=== PATIENT | male | born 1940 | race Two or more races ===

== ENCOUNTER → 2016-10-20 | Outpatient (CLI) | payer OTHER | LOC: RAD 08:00 | PROVIDERS: ATTEND Family Medicine | DX: G93.89 Other specified disorders of brain (principal) | CPT/HCPCS: 70553; A9577 ==

== ENCOUNTER 2016-12-25 21:27 | Emergency (ER) | payer MEDICAID, OTHER ==
[2016-12-25] MEDS ORDERED: DIPHENHYDRAMINE HCL 50 MG/ML VIAL IV ONE (23:16)
[2016-12-25] MEDS ORDERED: METOCLOPRAMIDE HCL INJ/PF 10 MG/2 ML SDV IV ONE (23:16)
[2016-12-25] MEDS ORDERED: NORMAL SALINE 1000 ML 1,000 ML IV ONE (23:16)
--- NOTE | 2016-12-25 23:40 | RADIOLOGY REPORT (SQ) ---
EXAM DESCRIPTION: CT HEAD WITHOUT COMPLETED DATE/TIME: 12/25/2016 11:23 pm REASON FOR STUDY: headache, prior tumor COMPARISON: MRI of the brain dated September 2016 TECHNIQUE: Axial images acquired through the brain without intravenous contrast. Images reviewed wi th bone, brain and subdural windows. Images stored on PACS. All CT scanners at this facility use dose modulation, iterative reconstruction, and/or weight based d osing when appropriate to reduce radiation dose to as low as reasonably achievable (ALARA). [facility]: Dose Right [facility]: CareDose [facility]: Dose Right [facility]: Teradose 4D [facility]: [employer] RADIATION DOSE: 64.61 mGy. LIMITATIONS: None. FINDINGS: VENTRICLES: Normal size and contour. CEREBRUM: No masses. No hemorrhage. No midline shift. Normal toney/white matter differentiation. N o evidence for acute infarction. CEREBELLUM: The previously described mass lesion in the left cerebellar hemisphere is not as well vis ualized on the non contrasted brain CT scan. There is associated white matter edema. Mass effect is seen with some compression of the 4th ventricle. EXTRAAXIAL SPACES: No fluid collections. No masses. ORBITS AND GLOBE: No intra- or extraconal masses. Normal contour of globe without masses. CALVARIUM: No fracture. PARANASAL SINUSES: No fluid or mucosal thickening. SOFT TISSUES: No mass or hematoma. OTHER: No other significant finding. IMPRESSION: The previously described mass lesion in the left cerebellar hemisphere is not as well vi sualized on the non contrasted brain CT scan. There is associated white matter edema. Mass effect i s seen with some compression of the 4th ventricle. Other findings as noted above. TECHNICAL DOCUMENTATION: JOB ID: [id number] Quality ID # [id number]: Final reports with documentation of one or more dose reduction techniques (e.g., Au tomated exposure control, adjustment of the mA and/or kV according to patient size, use of iterative reconstruction technique) 2010 [employer]- All Rights Reserved
--- NOTE | 2016-12-26 00:44 | ER Document Report ---
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 He says that IM Dec[facility] that he has from [facility] usually helps his headache, but it is not helping today. He has an appointment with neurosurgery this week to discuss gamma knife surgery. Denies blurry vision, ataxia, fevers, neck stiffness, focal weakness, numbness, tingling, chest pain or shortness of breath. TRAVEL OUTSIDE OF THE [place] IN LAST 30 DAYS: Yes - Related Data Allergies/Adverse Reactions: No Known Allergies Allergy (Verified 05/10/16 12:04) Past Medical History - General Information source: Patient - Social History Smoking Status: Never Smoker Chew tobacco use (# tins/day): No Frequency of alcohol use: None Drug Abuse: None Family History: Reviewed & Not Pertinent Patient has suicidal ideation: No Patient has homicidal ideation: No - Past Medical History Cardiac Medical History: Reports: Hx Hypercholesterolemia, Hx Hypertension Renal/ Medical History: Denies: Hx Peritoneal Dialysis Past Surgical History: Reports: Hx Appendectomy - Immunizations Hx Diphtheria, Pertussis, Tetanus Vaccination: Yes Review of Systems - Review of Systems Notes: REVIEW OF SYSTEMS: CONSTITUTIONAL: -fevers, -chills EENT: -eye pain, -difficulty swallowing, -nasal congestion CARDIOVASCULAR:-chest pain, -syncope. RESPIRATORY: -cough, -SOB GASTROINTESTINAL: -abdominal pain, - nausea, -vomiting, -diarrhea GENITOURINARY: -dysuria, -hematuria MUSCULOSKELETAL: -back pain, -neck pain SKIN: -rash or skin lesions. HEMATOLOGIC: -easy bruising or bleeding. LYMPHATIC: -swollen, enlarged glands. NEUROLOGICAL: -altered mental status or loss of consciousness, +headache, - neurologic symptoms PSYCHIATRIC: -anxiety, -depression. ALL OTHER SYSTEMS REVIEWED AND NEGATIVE. Physical Exam - Vital signs Vitals: Temp Pulse Resp BP Pulse Ox 98.2 F 71 18 179/69 H 95 12/25/16 21:30 12/25/16 21:30 12/25/16 21:30 12/25/16 21:30 12/25/16 21:30 - Notes Notes: PHYSICAL EXAMINATION: GENERAL: Well-appearing, well-nourished and in no acute distress. HEAD: Atraumatic, normocephalic. EYES: Pupils equal round and reactive to light, extraocular movements intact, sclera anicteric, conjunctiva are normal. ENT: nares patent, oropharynx clear without exudates. Moist mucous membranes. NECK: Normal range of motion, supple without lymphadenopathy LUNGS: Breath sounds clear to auscultation bilaterally and equal. No wheezes rales or rhonchi. HEART: Regular rate and rhythm without murmurs ABDOMEN: Soft, nontender, normoactive bowel sounds. No guarding, no rebound. No masses appreciated. EXTREMITIES: Normal range of motion, no pitting or edema. No cyanosis. NEUROLOGICAL: Cranial nerves grossly intact. Normal speech, normal gait. Normal sensory and motor exams. PSYCH: Normal mood, normal affect. SKIN: Warm, Dry, normal turgor, no rashes or lesions noted. Course - Re-evaluation Re-evalutation: 12/26/16 00:43 Spoke to patient about CT Head findings. He says that he is in the ER for pain control only and he has his neurosurgery appointment tomorrow. Has no ataxia or focal neuro symptoms at this time. After headache cocktail, patient feels much better and is requesting discharge home. Provided him with a copy of his CT head to take to the neurosurgeon. Given strict return precautions and he understands - Vital Signs Vital signs: Temp Pulse Resp BP Pulse Ox 98.4 F 66 17 138/72 H 95 12/25/16 23:31 12/25/16 23:31 12/25/16 23:31 12/25/16 23:31 12/25/16 23:31 - Diagnostic Test Radiology reviewed: Image reviewed, Reports reviewed Radiology results interpreted by me: CT Head: The previously described mass lesion in the left cerebellar hemisphere is not as well visualized on the non contrasted brain CT scan. There is associated white matter edema. Mass effect is seen with some compression of the 4th ventricle. Other findings as noted above. Discharge - Discharge Clinical Impression: Brain mass Chronic headache Qualifiers: Headache type: unspecified Intractability: not intractable Qualified Code(s): R51 - Headache Condition: Stable Disposition: HOME, SELF-CARE Additional Instructions: You must follow-up with the neurosurgeon as scheduled. Take Tylenol 650 mg every 4 hours as needed to help with your headache. HEADACHE: If you develop a fever, if the headache is different from any you've previously experienced, or if the headache progressively worsens, then call your physician at once or go to the emergency room. REGLAN (METOCLOPRAMIDE): Reglan has been prescribed. This medicine affects the stomach and intestines. It can be used to treat nausea and vomiting, to prevent reflux of stomach acid up into the esophagus, or to increase the contractions of the stomach and intestines. It is often prescribed for esophagitis, and for paralysis of the stomach in diabetics. Reglan can cause either mild restlessness or drowsiness. You should contact the doctor at once if you become extremely restless, anxious, or cannot sleep, or if you develop uncontrollable motions of the lips, tongue, or jaw. Do not take alcohol with this medicine. Do not drive or operate machinery until you have been taking this medicine long enough to know how it affects you. Call the doctor if you develop abdominal pains, lightheadedness, black stool, or blood in the stool or vomitus. USE OF DIPHENHYDRAMINE: Diphenhydramine (Benadryl) is an antihistamine and has been recommended to help treat your headache and to prevent side effects of other medications used to treat headaches. The medication can be repeated four times daily. Age Elixir (12.5 mg/tsp) 25 mg pill adult 1-2 tabs Antihistamines may cause drowsiness, especially with the first dose. Do not operate machinery or drive while under the effects of the medication. Do not combine the medication with alcohol, or with any other medication without talking to your doctor. FOLLOW-UP CARE: If you have been referred to a physician for follow-up care, call the physician s office for an appointment as you were instructed or within the next two days. If you experience worsening or a significant change in your symptoms, notify the physician immediately or return to the Emergency Department at any time for re-evaluation.
[2016-12-26 01:39] VITALS: BP 146/66
== END 2016-12-26 01:39 | disposition home or self-care (01) ==
LOC: ER 21:27
DX: R51 Headache (principal); G93.89 Other specified disorders of brain; R11.0 Nausea; E78.00 Pure hypercholesterolemia, unspecified; I10 Essential (primary) hypertension
CPT/HCPCS: 99284; 96374; 96375; 70450; J1200; J2765; J7030

== ENCOUNTER 2016-12-28 17:26 | Emergency (ER) | payer MEDICAID, OTHER ==
[2016-12-28 17:35] VITALS: BP 173/74
--- NOTE | 2016-12-28 17:53 | ER Document Report ---
ED Headache - General Chief Complaint: Headache Stated Complaint: HEADACHE Time Seen by Provider: 12/28/16 17:38 TRAVEL OUTSIDE OF THE [place]. IN LAST 30 DAYS: No - HPI Patient complains to provider of: Headache - This pt. has as known cerebellar tumor and was seen here 3 days ago for RAZO and CT was done at that time. He was supposed to have surgery several months ago but it was postponed due to an insurance issue. He states he was told to take tylenol for his RAZO but that is not contolling his pain. - Related Data Allergies/Adverse Reactions: No Known Allergies Allergy (Verified 12/28/16 17:34) Past Medical History - Social History Smoking Status: Never Smoker Cigarette use (# per day): No Chew tobacco use (# tins/day): No Smoking Education Provided: No Frequency of alcohol use: None Drug Abuse: None Family History: Reviewed & Not Pertinent Patient has suicidal ideation: No Patient has homicidal ideation: No - Past Medical History Cardiac Medical History: Reports: Hx Hypercholesterolemia, Hx Hypertension Renal/ Medical History: Denies: Hx Peritoneal Dialysis Past Surgical History: Reports: Hx Appendectomy - Immunizations Hx Diphtheria, Pertussis, Tetanus Vaccination: Yes Review of Systems - Review of Systems Constitutional: No symptoms reported EENT: No symptoms reported Cardiovascular: No symptoms reported Respiratory: No symptoms reported Gastrointestinal: No symptoms reported Musculoskeletal: No symptoms reported Neurological/Psychological: See HPI, Headaches -: Yes All other systems reviewed and negative Physical Exam - Vital signs Vitals: Temp Pulse Resp BP Pulse Ox 98.0 F 63 16 173/74 H 96 12/28/16 17:33 12/28/16 17:33 12/28/16 17:33 12/28/16 17:33 12/28/16 17:33 - General General appearance: Appears well In distress: None - HEENT Pupils: PERRL Pharynx: Normal Neck: Normal - Respiratory Respiratory status: No respiratory distress Breath sounds: Normal - Cardiovascular Rhythm: Regular Heart sounds: Normal auscultation - Abdominal Inspection: Normal Tenderness: Nontender - Extremities General upper extremity: Normal inspection General lower extremity: Normal inspection - Neurological Neuro grossly intact: Yes Cognition: Normal Orientation: AAOx4 Speech: Normal Cranial nerves: Normal Cerebellar coordination: Normal Motor strength normal: LUE, RUE, LLE, RLE Additional motor exam normals: 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 to call his neurosurgeon tomorrow so that he can make preparation for surgery. He states he will do this - Vital Signs Vital signs: Temp Pulse Resp BP Pulse Ox 98.0 F 63 16 173/74 H 96 12/28/16 17:33 12/28/16 17:33 12/28/16 17:33 12/28/16 17:33 12/28/16 17:33 Discharge - Discharge Clinical Impression: Brain mass Cephalgia Qualifiers: Headache type: unspecified Headache chronicity pattern: acute headache Intractability: not intractable Qualified Code(s): R51 - Headache Condition: Stable Disposition: HOME, SELF-CARE Instructions: Headache ([facility]) Additional Instructions: rest, take meds as prescribed, return if worse Prescriptions: Methylprednisolone [Medrol Dosepack (4 mg/Tab) 21 Tab/Dosepak] 4 mg PO ASDIR PRN #21 tab.ds.pk PRN Reason: Oxycodone HCl/Acetaminophen [Percocet 5-325 mg Tablet] 1 tab PO ASDIR PRN #15 tab PRN Reason:
[2016-12-28] MEDS ORDERED: HYDROCODONE/ACETAMINOPHEN 10-325 MG TABLET PO ONE (18:00)
== END 2016-12-28 18:13 | disposition home or self-care (01) ==
LOC: ER 17:26
DX: G93.89 Other specified disorders of brain (principal); R51 Headache; E78.00 Pure hypercholesterolemia, unspecified; I10 Essential (primary) hypertension
CPT/HCPCS: 99283

== ENCOUNTER 2017-02-07 12:33 | Emergency (ER) | payer MEDICAID, OTHER ==
[2017-02-07] MEDS ORDERED: KETOROLAC TROMETHAMINE 60 MG/2 ML SDV IM ONE (13:04)
--- NOTE | 2017-02-07 13:08 | ER Document Report ---
ED Medical Screen (RME) - General Chief Complaint: Headache Stated Complaint: HEADACHE Time Seen by Provider: 02/07/17 13:03 Mode of Arrival: Ambulatory Information source: Patient TRAVEL OUTSIDE OF THE [place] IN LAST 30 DAYS: No [facility] - HPI Patient complains to provider of: RAZO Onset: Yesterday - pt has been receiving radiation for brain tumor but has been having recurring RAZO for the past 1-2 days. Had exacerbation this am. - Related Data Allergies/Adverse Reactions: No Known Allergies Allergy (Verified 02/07/17 12:41) Past Medical History - Social History Chew tobacco use (# tins/day): No Frequency of alcohol use: None Drug Abuse: None - Past Medical History Cardiac Medical History: Reports: Hx Hypercholesterolemia, Hx Hypertension Renal/ Medical History: Denies: Hx Peritoneal Dialysis Past Surgical History: Reports: Hx Appendectomy - Immunizations Hx Diphtheria, Pertussis, Tetanus Vaccination: Yes Physical Exam - Vital signs Vitals: Temp Pulse Resp BP Pulse Ox 98.5 F 69 20 175/66 H 96 02/07/17 12:41 02/07/17 12:41 02/07/17 12:41 02/07/17 12:41 02/07/17 12:41 Course - Vital Signs Vital signs: Temp Pulse Resp BP Pulse Ox 98.5 F 69 20 175/66 H 96 02/07/17 12:41 02/07/17 12:41 02/07/17 12:41 02/07/17 12:41 02/07/17 12:41
[2017-02-07 13:23] LABS: ABSOLUTE LYMPHOCYTES (AUTO) 1.5 10^3/uL (0.5-4.7); ABSOLUTE MONOCYTES (AUTO) 0.9 10^3/uL (0.1-1.4); ABSOLUTE NEUT (AUTO) 9.9 10^3/uL (1.7-8.2); BASOPHILS % (AUTO) 0.3 % (0-2); EOSINOPHILS % (AUTO) 0.2 % (0-6); HEMOGLOBIN 12.4 g/dL (13.5-17.0); HGB HCT DIFFERENCE -0.8; LYMPHOCYTES % (AUTO) 12.2 % (13-45); MEAN CORPUSCULAR HEMOGLOBIN 27.8 pg (27.0-33.4); MEAN CORPUSCULAR HGB CONC 32.7 g/dL (32.0-36.0); MEAN CORPUSCULAR VOLUME 85 fl (80-97); MONOCYTES % (AUTO) 7.5 % (3-13); RED BLOOD COUNT 4.47 10^6/uL (4.35-5.55); RED CELL DISTRIBUTION WIDTH 17.5 % (11.5-14.0); SEGMENTED NEUTROPHILS % (AUTO) 79.8 % (42-78); WHITE BLOOD COUNT 12.5 10^3/uL (4.0-10.5)
--- NOTE | 2017-02-07 13:24 | ER Document Report ---
ED General - General Mode of Arrival: Ambulatory Information source: Patient TRAVEL OUTSIDE OF THE [place] IN LAST 30 DAYS: No COUNTRY TRAVELED TO/FROM: [place] - HPI Onset: Other - Refer to HPI notes Similar symptoms previously: Yes Recently seen / treated by doctor: Yes <PARAG DIAZ - Last Filed: 02/07/17 13:35> <SHELBY JOINER - Last Filed: 02/07/17 15:30> - General Chief Complaint: Headache Stated Complaint: HEADACHE Time Seen by Provider: 02/07/17 13:03 Notes: Patient is a 76-year-old male presents emergency department with a headache. Patient headache since been present since yesterday and worsened this morning. Patient has been taking Tylenol with no relief. Patient's pain is located to the posterior region of his head the back of his neck. Patient also complains of some nausea and vomiting 2. Patient was found to have a cerebellar mass on 05/10/2016. Patient has been treated at [facility] for radiation; patient's last radiation was on 01/26/2017. Patient states there was initial thought that surgery could be performed however it does not seem that his providers at [facility] are going to utilize option. Patient has not had a biopsy. Patient's last CT scan showed a left cerebellar mass with metastatic lesions. Patient is currently taking steroids. Patient has had these headaches before which is how his mass was discovered however, today's headache is different because the pain is all the way across the back of his head and not just on the left side. Patient had a follow-up appointment with [facility] on 06/01/2017. (PARAG DIAZ) - Related Data Allergies/Adverse Reactions: No Known Allergies Allergy (Verified 02/07/17 12:41) Past Medical History - General Information source: Patient - Social History Smoking Status: Never Smoker Cigarette use (# per day): No Chew tobacco use (# tins/day): No Frequency of alcohol use: None Drug Abuse: None Family History: None Patient has suicidal ideation: No Patient has homicidal ideation: No - Past Medical History Cardiac Medical History: Reports: Hx Hypercholesterolemia, Hx Hypertension Malignancy Medical History: Reports Other - Cerebral mass with metastases; radiation but no surgery; possibly cancerous Past Surgical History: Reports: Hx Appendectomy - Immunizations Hx Diphtheria, Pertussis, Tetanus Vaccination: Yes <PARAG DIAZ - Last Filed: 02/07/17 13:35> Review of Systems - Review of Systems Constitutional: No symptoms reported EENT: No symptoms reported Cardiovascular: No symptoms reported Respiratory: No symptoms reported Gastrointestinal: No symptoms reported Genitourinary: No symptoms reported Male Genitourinary: No symptoms reported Musculoskeletal: No symptoms reported Skin: No symptoms reported Hematologic/Lymphatic: No symptoms reported Neurological/Psychological: See HPI, Headaches -: Yes All other systems reviewed and negative <PARAG DIAZ - Last Filed: 02/07/17 13:35> Physical Exam - Vital signs Interpretation: Hypertensive <PARAG DIAZ - Last Filed: 02/07/17 13:35> <SHELBY JOINER - Last Filed: 02/07/17 15:30> - Vital signs Vitals: Temp Pulse Resp BP Pulse Ox 98.5 F 69 20 175/66 H 96 02/07/17 12:41 02/07/17 12:41 02/07/17 12:41 02/07/17 12:41 02/07/17 12:41 - Notes Notes: GENERAL: Alert, interacts well. No acute distress. HEAD: Normocephalic, atraumatic. EYES: Appear normal. Pupils equal, round, and reactive to light. ENT: Moist mucus membranes, tongue midline. NECK: Full range of motion. Supple. Trachea midline. Tenderness to palpation over the posterior cervical musculature and at the nuchal ridge. LUNGS: Clear to auscultation bilaterally, no wheezes, rales, or rhonchi. No respiratory distress. HEART: Regular rate and rhythm. No murmurs, gallops, or rubs. ABDOMEN: Soft, non-tender. Non-distended. Normal bowel sounds. EXTREMITIES: Moves all 4 extremities spontaneously. Normal strength. No edema. NEUROLOGICAL: Alert and oriented x3. Normal speech. No focal neurological deficits. GSC 15. PSYCH: Normal affect, normal mood. SKIN: Warm, dry, normal turgor. No rashes or lesions noted. (MARY JANELYNDSEYPARAG) Course - Laboratory Result Diagrams: 02/07/17 13:10 02/07/17 13:10 <PARAG DIAZ - Last Filed: 02/07/17 13:35> - Laboratory Result Diagrams: 02/07/17 13:10 02/07/17 13:10 - Diagnostic Test Radiology reviewed: Image reviewed, Reports reviewed - CT scan shows the known left cerebellar mass with vasogenic edema and fourth ventricular compression. There also appears to be a new lesion developing in the right cerebellum. There is no supratentorial mass seen. <SHELBY JOINER - Last Filed: 02/07/17 15:30> - Re-evaluation Re-evalutation: 02/07/17 15:30 The patient reports his headache is feeling much better at this time. (SHELBY JOINER) - Vital Signs Vital signs: Temp Pulse Resp BP Pulse Ox 98.5 F 69 20 175/66 H 96 02/07/17 12:41 02/07/17 12:41 02/07/17 12:41 02/07/17 12:41 02/07/17 12:41 - Laboratory Laboratory results interpreted by me: 02/07/17 02/07/17 13:10 13:10 WBC 12.5 H Hgb 12.4 L RDW 17.5 H Seg Neutrophils % 79.8 H Lymphocytes % 12.2 L Absolute Neutrophils 9.9 H Glucose 121 H Discharge <PARAG DIAZ - Last Filed: 02/07/17 13:35> <SHELBY JOINER - Last Filed: 02/07/17 15:30> - Discharge Clinical Impression: Neoplasm of brain causing mass effect on adjacent structures Tension type headache Qualifiers: Headache chronicity pattern: acute headache Intractability: not intractable Qualified Code(s): G44.209 - Tension-type headache, unspecified, not intractable Condition: Stable Disposition: HOME, SELF-CARE Additional Instructions: Tension Headache: Your problem seems to be a muscle tension headache today. This very common type of headache occurs because of tightness in the muscles of the head and neck. The cause may be neck or jaw joint problems. The headache may last hours or days. The treatment of uncomplicated tension headaches is rest and pain medication. Often, the newer antiinflammatory pain medications are prescribed, as these also decrease the irritability of the painful tissues. Muscle relaxers , cold packs, or warm packs are sometimes helpful. Anti-anxiety medication or narcotics are sometimes needed temporarily, but are best avoided in the long run. If your headache becomes more severe, or if new symptoms develop (such as fever, stiff neck, vomiting, or decreasing alertness) you should be re-examined by the physician. //////////////////////////////////////////////////////////////////////////////// //////////////////////////////////////////////////////////////////////////////// /////////////////// Your exam today suggests the headache is due to a muscle tension headache. Take Tylenol for your headache and try moist heat and ice packs to the painful muscles in the back of your neck if needed. The CT scan shows the known mass in the left cerebellum, and there is a suggestion of a new mass arising in the right cerebellum. Call your neurosurgeon at [facility] Thursday morning to report the new CT scan findings and see if they would like to see you sooner than your May appointment. RETURN TO THE EMERGENCY ROOM IF ANY NEW OR WORSENING SYMPTOMS. Scribe Attestation: 02/07/17 15:30 I personally performed the services described in the documentation, reviewed and edited the documentation which was dictated to the scribe in my presence, and it accurately records my words and actions. (SHELBY JOINER) Scribe Documentation - Scribe Written by Robles:: Robles Pang, 02/07/2017 13:40 acting as scribe for :: Jules <PARAG DIAZ - Last Filed: 02/07/17 13:35>
[2017-02-07] MEDS ORDERED: PROCHLORPERAZINE EDISYLATE INJ 10 MG/2 ML VIAL IV ONE (13:35)
[2017-02-07] MEDS ORDERED: NORMAL SALINE 1000 ML 1,000 ML IV ONE (13:35)
[2017-02-07] MEDS ORDERED: DIPHENHYDRAMINE HCL 50 MG/ML VIAL IV ONE (13:36)
[2017-02-07 13:39] LABS: ALANINE AMINOTRANSFERASE 49 U/L (21-72); ALBUMIN 3.6 g/dL (3.5-5.0); ALKALINE PHOSPHATASE 126 U/L (38-126); ANION GAP 10 (5-19); ASPARTATE AMINO TRANSFERASE 28 U/L (17-59); BILIRUBIN,DIRECT 0.2 mg/dL (0.0-0.4); BILIRUBIN,TOTAL 0.6 mg/dL (0.2-1.3); BLOOD UREA NITROGEN 16 mg/dL (7-20); CALCIUM 8.9 mg/dL (8.4-10.2); CARBON DIOXIDE 28 mmol/L (22-30); CHLORIDE 101 mmol/L (98-107); CREATININE RESULT 0.97 mg/dL (0.52-1.25); GLUCOSE 121 mg/dL (75-110); POTASSIUM 4.3 mmol/L (3.6-5.0); SODIUM 138.8 mmol/L (137-145); TOTAL PROTEIN 6.3 g/dL (6.3-8.2)
--- NOTE | 2017-02-07 13:39 | RADIOLOGY REPORT (SQ) ---
EXAM DESCRIPTION: CT HEAD WITHOUT COMPLETED DATE/TIME: 02/07/2017 1:27 pm REASON FOR STUDY: RAZO/h/o brain tumor COMPARISON: 12/25/2016. MR brain 10/20/2016. TECHNIQUE: Axial images acquired through the brain without intravenous contrast. Images reviewed wi th bone, brain and subdural windows. Images stored on PACS. All CT scanners at this facility use dose modulation, iterative reconstruction, and/or weight based d osing when appropriate to reduce radiation dose to as low as reasonably achievable (ALARA). [facility]: Dose Right [facility]: CareDose [facility]: Dose Right [facility]: Teradose 4D [facility]: Smart [employer] RADIATION DOSE: Up-to-date CT equipment and radiation dose reduction techniques were employed. CTDIv ol: 64.6 mGy. DLP: 1163 mGy-cm. mGy. LIMITATIONS: Lack of IV contrast somewhat limits the evaluation. FINDINGS: VENTRICLES: Normal size and contour. CEREBRUM: Mild low density in the deep white matter particularly along the left ventricular frontal h orn. No discrete underlying mass suggested. No hemorrhage. No shift or developing hydrocephalus. CEREBELLUM: Heterogeneous. Particularly in the left yola cerebellum. There is an area of almost ser piginous appearing increased signal in the midst of generalized low density presumed edema. Slightly more low density is also noted in the right yola cerebellum relative to last months CT. Effacement of the 4th ventricle, as before. EXTRAAXIAL SPACES: No fluid collections. No masses. ORBITS AND GLOBE: No intra- or extraconal masses. Normal contour of globe without masses. CALVARIUM: No fracture. Sclerosis in the right mastoid, likely chronic disease. PARANASAL SINUSES: No fluid or mucosal thickening. SOFT TISSUES: No mass or hematoma. OTHER: No other significant finding. IMPRESSION: 1. Known mass in the left yola cerebellum. Poorly seen with noncontrast CT but general ly similar appearance compared to the CT from last month. Associated edema and effacement of the 4th ventricle. Potential developing low density in the right aspect of the cerebellum now. 2. No disc rete supratentorial lesions identified. No shift or hydrocephalus. No hemorrhage. TECHNICAL DOCUMENTATION: JOB ID: [id number] Quality ID # [id number]: Final reports with documentation of one or more dose reduction techniques (e.g., Au tomated exposure control, adjustment of the mA and/or kV according to patient size, use of iterative reconstruction technique) 2010 [employer]- All Rights Reserved
[2017-02-07 15:48] VITALS: BP 145/64
== END 2017-02-07 15:49 | disposition home or self-care (01) ==
LOC: ER 12:33
DX: D49.6 Neoplasm of unspecified behavior of brain (principal); G44.209 Tension-type headache, unspecified, not intractable; I10 Essential (primary) hypertension; R11.2 Nausea with vomiting, unspecified; Z92.3 Personal history of irradiation; Z79.52 Long term (current) use of systemic steroids
CPT/HCPCS: 99284; 96372; 96374; 96375; 36415; 85025; 80053; 70450; J1200; J1885; J0780; J7030

== ENCOUNTER 2017-02-11 06:56 | Emergency (ER) | payer MEDICAID, OTHER ==
[2017-02-11] MEDS ORDERED: NORMAL SALINE 1000 ML 1,000 ML IV ONE (08:01)
[2017-02-11] MEDS ORDERED: KETOROLAC TROMETHAMINE INJ/PF 30 MG/1 ML SDV IV ONE (08:02)
[2017-02-11] MEDS ORDERED: LIDOCAINE 5% (700 MG) TRANSDERMAL ADH..PATCH TP ONE (08:02)
--- NOTE | 2017-02-11 11:11 | ER Document Report ---
ED General - General Chief Complaint: Headache Stated Complaint: HEADACHE Time Seen by Provider: 02/11/17 07:59 TRAVEL OUTSIDE OF THE [place] IN LAST 30 DAYS: No COUNTRY TRAVELED TO/FROM: [facility] Patient complains to provider of: Headache Notes: Patient has known left intracranial mass was recently evaluated with a CT scan here in the ER coming in again for similar headache occipital in nature patient was started on dexamethasone by his doctors at [place]. Patient otherwise denies any anterior pathology denies numbness tingling fevers chills nausea vomiting diarrhea. - Related Data Allergies/Adverse Reactions: No Known Allergies Allergy (Verified 02/07/17 12:41) Past Medical History - Social History Smoking Status: Former Smoker Chew tobacco use (# tins/day): No Frequency of alcohol use: None Drug Abuse: None Family History: None Patient has suicidal ideation: No Patient has homicidal ideation: No - Past Medical History Cardiac Medical History: Reports: Hx Hypercholesterolemia, Hx Hypertension Renal/ Medical History: Denies: Hx Peritoneal Dialysis Past Surgical History: Reports: Hx Appendectomy - Immunizations Hx Diphtheria, Pertussis, Tetanus Vaccination: Yes Review of Systems - Review of Systems Constitutional: No symptoms reported EENT: No symptoms reported Cardiovascular: No symptoms reported Respiratory: No symptoms reported Gastrointestinal: No symptoms reported Genitourinary: No symptoms reported Male Genitourinary: No symptoms reported Musculoskeletal: Other - Headache Skin: No symptoms reported Hematologic/Lymphatic: No symptoms reported Neurological/Psychological: No symptoms reported Physical Exam - Vital signs Vitals: Temp Pulse Resp BP Pulse Ox 98.0 F 134 H 20 163/58 H 98 02/11/17 07:08 02/11/17 07:08 02/11/17 07:08 02/11/17 07:08 02/11/17 07:08 Interpretation: Normal - General General appearance: Appears well, Alert - HEENT Head: Normocephalic, Atraumatic Eyes: Normal Pupils: PERRL Notes: Patient has tenderness to palpation of the paraspinal muscles in the neck up to the occipital region reproduces patient's pain. Consistent with tension headache. - Respiratory Respiratory status: No respiratory distress Chest status: Nontender Breath sounds: Normal Chest palpation: Normal - Cardiovascular Rhythm: Regular Heart sounds: Normal auscultation Murmur: No - Abdominal Inspection: Normal Distension: No distension Bowel sounds: Normal Tenderness: Nontender Organomegaly: No organomegaly - Back Back: Normal, Nontender - Extremities General upper extremity: Normal inspection, Nontender, Normal color, Normal ROM , Normal temperature General lower extremity: Normal inspection, Nontender, Normal color, Normal ROM , Normal temperature, Normal weight bearing. No: Izzy's sign - Neurological Neuro grossly intact: Yes Cognition: Normal Orientation: AAOx4 Chon Coma Scale Eye Opening: Spontaneous Chon Coma Scale Verbal: Oriented Hoffman Coma Scale Motor: Obeys Commands Chon Coma Scale Total: 15 Speech: Normal Motor strength normal: LUE, RUE, LLE, RLE Sensory: Normal - Psychological Associated symptoms: Normal affect, Normal mood - Skin Skin Temperature: Warm Skin Moisture: Dry Skin Color: Normal Course - Re-evaluation Re-evalutation: 02/11/17 14:29 The patient presents with headache without signs of [employer] bleed, stroke, infection , or other serious etiology. The patient is neurologically intact. Given the extremely low risk of these diagnoses further testing and evaluation for these possibilities does not appear to be indicated at this time. The patient has been instructed to return if the symptoms worsen or change in any way.. Patient presents with tension headache better after ketorolac will discharge home - Vital Signs Vital signs: Temp Pulse Resp BP Pulse Ox 97.6 F 66 20 136/61 H 100 02/11/17 11:57 02/11/17 11:57 02/11/17 11:57 02/11/17 11:57 02/11/17 11:57 Discharge - Discharge Clinical Impression: Tension type headache Qualifiers: Headache chronicity pattern: acute headache Intractability: not intractable Qualified Code(s): G44.209 - Tension-type headache, unspecified, not intractable Condition: Good Disposition: HOME, SELF-CARE Instructions: Tension Headache ([facility]) Additional Instructions: Please follow-up with your primary care provider. May use the Lidoderm patches is provided. If the patches are too expensive he may ask your pharmacist about [id number] option. May also take Tylenol Motrin for pain control. Prescriptions: Lidocaine [Lidoderm] 1 each TP DAILY #20 adh..patch Referrals: TATA OWENS MD [Primary Care Provider] - Follow up as needed
[2017-02-11 12:09] VITALS: BP 136/61
== END 2017-02-11 11:57 | disposition home or self-care (01) ==
LOC: ER 06:56
DX: G44.209 Tension-type headache, unspecified, not intractable (principal); Z87.891 Personal history of nicotine dependence
CPT/HCPCS: 99283; 96374; J1885; J7030

== ENCOUNTER 2017-02-12 13:24 | Emergency (ER) | payer MEDICAID, OTHER ==
[2017-02-12] MEDS ORDERED: BUTALB/ACETAMINOPHEN/CAFFEINE 1 TAB EACH PO ONE (13:53)
[2017-02-12] MEDS ORDERED: ONDANSETRON 4 MG TAB.RAPDIS PO ONE (13:53)
--- NOTE | 2017-02-12 14:55 | ER Document Report ---
ED Medical Screen (RME) - General Chief Complaint: Headache Stated Complaint: HEAD PAIN Time Seen by Provider: 02/12/17 13:53 Notes: Patient has multiple visits for severe posterior headaches. 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 He has been treated at [facility] for this. He has been told that the tumor is not the cause of his pain. Patient is tried lidocaine patches as well as other medicines at home with no relief. I initially tried patient here with some Zofran and 2 p.o. Fioricet patient states he has no relief. Therefore it seems the patient will require administration of the medication of his pain. He will be transferred to the main emergency department for further pain control. TRAVEL OUTSIDE OF THE [place] IN LAST 30 DAYS: No COUNTRY TRAVELED TO/FROM: [facility] - Related Data Allergies/Adverse Reactions: No Known Allergies Allergy (Verified 02/07/17 12:41) Past Medical History - Social History Chew tobacco use (# tins/day): No Frequency of alcohol use: None Drug Abuse: None - Past Medical History Cardiac Medical History: Reports: Hx Hypercholesterolemia, Hx Hypertension Renal/ Medical History: Denies: Hx Peritoneal Dialysis Past Surgical History: Reports: Hx Appendectomy - Immunizations Hx Diphtheria, Pertussis, Tetanus Vaccination: Yes Physical Exam - Vital signs Vitals: Temp Pulse Resp BP Pulse Ox 98.0 F 64 18 194/67 H 97 02/12/17 13:37 02/12/17 13:37 02/12/17 13:37 02/12/17 13:37 02/12/17 13:37 Course - Vital Signs Vital signs: Temp Pulse Resp BP Pulse Ox 98.0 F 64 18 194/67 H 97 02/12/17 13:37 02/12/17 13:37 02/12/17 13:37 02/12/17 13:37 02/12/17 13:37
[2017-02-12] MEDS ORDERED: MORPHINE SULFATE 10 MG/ML INJ IV ONE (15:36)
[2017-02-12] MEDS ORDERED: ONDANSETRON HCL INJ/PF 4 MG/2 ML SDV IV ONE (15:37)
--- NOTE | 2017-02-12 15:44 | ER Document Report ---
ED Headache - General Chief Complaint: Headache Stated Complaint: HEAD PAIN Time Seen by Provider: 02/12/17 13:53 TRAVEL OUTSIDE OF THE [place]S. IN LAST 30 DAYS: No - HPI Notes: 76-year-old male presents with headache that has been persisting for weeks. 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 Unfortunately his neurosurgeon is out of town and they are not able to get any further apparently. He presented yesterday for uncontrolled headache. He had at some point been on dexamethasone but this is stopped as he has not been helped with it. He was taking 4 mg daily. Seen yesterday for pain relief given Fioricet and Zofran but still not having any relief. MRI in September showed multiple lesions, CT performed on the showed what appeared to be some vasogenic edema but with lack of contrast it was difficult to determine the significance of this. He has no new focal neurologic symptoms. Complains just of pain at this point. Otherwise he just has nausea and has had 2 episodes of vomiting today. They describe ataxia with a fall this week with it to his nose. He denies vision change. He has generalized weakness - Related Data Allergies/Adverse Reactions: No Known Allergies Allergy (Verified 02/07/17 12:41) Past Medical History - Social History Smoking Status: Never Smoker Chew tobacco use (# tins/day): No Frequency of alcohol use: None Drug Abuse: None Family History: None Patient has suicidal ideation: No Patient has homicidal ideation: No - Past Medical History Cardiac Medical History: Reports: Hx Hypercholesterolemia, Hx Hypertension Renal/ Medical History: Denies: Hx Peritoneal Dialysis Past Surgical History: Reports: Hx Appendectomy - Immunizations Hx Diphtheria, Pertussis, Tetanus Vaccination: Yes Physical Exam - Vital signs Vitals: Temp Pulse Resp BP Pulse Ox 98.0 F 64 18 194/67 H 97 02/12/17 13:37 02/12/17 13:37 02/12/17 13:37 02/12/17 13:37 02/12/17 13:37 Interpretation: Hypertensive - Notes Notes: GENERAL: VS as per nursing doc. Well-appearing, well-nourished and in no acute distress. HEAD: Atraumatic, normocephalic. EYES: Pupils equal round and reactive to light, extraocular movements intact with persisting horizontal nystagmus noted more to the right, sclera anicteric, no conjunctival injection or discharge. ENT: Nares patent, there is deformity with overlying abrasions of the bridge of the nose, no septal hematoma , oropharynx clear without exudates. Moist mucous membranes. NECK: Normal range of motion, supple, nontender LUNGS: Breath sounds clear to auscultation bilaterally and equal. No wheezes rales or rhonchi. HEART: Normal S1S2. Regular rate and rhythm without murmurs. Equal peripheral pulses. ABDOMEN: Soft, non-tender. No appreciable mass. EXTREMITIES: Normal range of motion. No evidence of acute injury NEUROLOGICAL: Patient unsteady on feet, generalized weak but no obvious focal numbness or weakness. PSYCH: Normal mood, normal affect. Flat affect, SKIN: Warm, Dry, no cyanosis, Cap refill < 2 sec. Course - Re-evaluation Re-evalutation: 02/12/17 20:13 MRI showed the same 3 cerebellar lesions but increasing size and vasogenic edema. This appears to be the cause of his discomfort. The son who I discussed with the suggested possibly the or other causes but this is in the location of his pain and his neurologic/cerebellar signs. We will give him a dose of Decadron here. They have 4 mg tablets they will use at home daily. Both the neurosurgeon and oncologist apparently are out of town so they will take the MRI report sent to the office and talk to the physicians tomorrow to have access to the records regarding further care. I discussed medications and warning signs, constipation, excessive somnolence, unsteadiness as well with them to watch for. - Vital Signs Vital signs: Temp Pulse Resp BP Pulse Ox 98.0 F 64 18 194/67 H 97 02/12/17 13:37 02/12/17 13:37 02/12/17 13:37 02/12/17 13:37 02/12/17 13:37 - Laboratory Result Diagrams: 02/12/17 16:10 02/12/17 16:10 Laboratory results interpreted by me: 02/12/17 02/12/17 16:10 16:10 WBC 10.9 H Hgb 12.6 L RDW 17.5 H Seg Neutrophils % 83.0 H Lymphocytes % 10.3 L Absolute Neutrophils 9.1 H Glucose 126 H - Diagnostic Test Radiology reviewed: Image reviewed, Reports reviewed - Similar cerebellar lesions increase in size and vasogenic edema. Discharge - Discharge Clinical Impression: Neoplasm of brain causing mass effect on adjacent structures, Headache Condition: Fair Disposition: HOME, SELF-CARE Instructions: Oral Narcotic Medication ([facility]), Antinausea Medication ([facility]) Additional Instructions: Contact your oncologist as well as your neurosurgeon tomorrow. Please let them either get a copy of the MRI or get them a copy herself to the on-call physician for future plans and treatment. In the meanwhile take your Decadron 4 mg tablet daily. Let them know you are taking that dose. Use the Flasher pain medication as needed. I would consider taking half a tablet initially. Watch for side effects such as constipation, excessive somnolence, unsteadiness. Return for worsening or concern. Prescriptions: Hydrocodone/Acetaminophen [Flasher 10-325 mg Tablet] 1 tab PO Q6HP PRN #20 tablet PRN Reason: For Pain Ondansetron [Zofran Odt 4 mg Tablet] 1 - 2 tab PO Q4H PRN #15 tab.rapdis PRN Reason: For Nausea/Vomiting Referrals: TATA OWENS MD [Primary Care Provider] - Follow up tomorrow
[2017-02-12 16:24] LABS: ABSOLUTE LYMPHOCYTES (AUTO) 1.1 10^3/uL (0.5-4.7); ABSOLUTE MONOCYTES (AUTO) 0.7 10^3/uL (0.1-1.4); ABSOLUTE NEUT (AUTO) 9.1 10^3/uL (1.7-8.2); BASOPHILS % (AUTO) 0.2 % (0-2); EOSINOPHILS % (AUTO) 0.3 % (0-6); HEMATOCRIT 38.1 % (37.9-51.0); HEMOGLOBIN 12.6 g/dL (13.5-17.0); HGB HCT DIFFERENCE -0.3; LYMPHOCYTES % (AUTO) 10.3 % (13-45); MEAN CORPUSCULAR HEMOGLOBIN 28.6 pg (27.0-33.4); MEAN CORPUSCULAR HGB CONC 33.2 g/dL (32.0-36.0); MEAN CORPUSCULAR VOLUME 86 fl (80-97); MONOCYTES % (AUTO) 6.2 % (3-13); RED BLOOD COUNT 4.43 10^6/uL (4.35-5.55); RED CELL DISTRIBUTION WIDTH 17.5 % (11.5-14.0); WHITE BLOOD COUNT 10.9 10^3/uL (4.0-10.5)
[2017-02-12 16:42] LABS: ANION GAP 10 (5-19); BLOOD UREA NITROGEN 14 mg/dL (7-20); CALCIUM 9.1 mg/dL (8.4-10.2); CARBON DIOXIDE 29 mmol/L (22-30); CHLORIDE 100 mmol/L (98-107); CREATININE RESULT 0.84 mg/dL (0.52-1.25); GLUCOSE 126 mg/dL (75-110); POTASSIUM 4.4 mmol/L (3.6-5.0); SODIUM 139.2 mmol/L (137-145)
--- NOTE | 2017-02-12 19:45 | RADIOLOGY REPORT (SQ) ---
EXAM DESCRIPTION: MRI HEAD COMBO COMPLETED DATE/TIME: 02/12/2017 5:31 pm REASON FOR STUDY: Occipital RAZO with known mass, CT yest, September MRI COMPARISON: 10/20/2016 TECHNIQUE: Multiplanar imaging includes noncontrasted T1, T2, FLAIR, diffusion with ADC map and post gadolinium contrast T1 sequences. Images stored on PACS. CONTRAST TYPE AND DOSE: 15 mL Multihance. RENAL FUNCTION: GFR > 60. LIMITATIONS: None. FINDINGS: ANATOMY: No anomalies. Normal vascular flow voids. Pituitary fossa normal. CSF SPACES: Normal in size and contour. No hemorrhage. CEREBRUM: No mass lesions are identified. No evidence of hemorrhage. There is scattered long TR si gnal abnormality seen on the FLAIR imaging consistent chronic microvascular ischemic disease changes. No enhancing lesions are identified. POSTERIOR FOSSA:Again identified are the 3 high-signal intensity enhancing lesions within the right a nd the left cerebellum. The largest lesion is seen in the left cerebellar hemisphere measuring appro ximately 2.6 x 2.4 x 2.0 cm on today's study which is slightly increased in comparison to the prior s tudy. The smaller lesion in the left hemisphere as well as the solitary lesion in the right approval hemisphere of also increased in size comparison to the prior study. There is vasogenic edema so she with the lesions more significant on the left than on the right. DIFFUSION IMAGING: Negative for acute or subacute infarction. ORBITS: No masses. Globes normal. PARANASAL SINUSES: No fluid levels. Mucosa normal. Fluid noted in the right and left mastoids. OTHER: No other significant finding. IMPRESSION: Again identified are the 3 enhancing lesions seen in the right and left cerebellar hemis pheres. These have increased in size in comparison the study from September 2016. There is vasogenic ed xena associated with both the lesions. No midline shift. No new enhancing lesions identified in the cerebrum. EVIDENCE OF ACUTE STROKE: NO. TECHNICAL DOCUMENTATION: JOB ID: [id number] [employer]- All Rights Reserved
[2017-02-12] MEDS ORDERED: DEXAMETHASONE SOD PHOS INJ 10 MG/1 ML VIAL IV ONE (20:04)
[2017-02-12 21:44] VITALS: BP 157/77
== END 2017-02-12 21:43 | disposition home or self-care (01) ==
LOC: ER 13:24
DX: D49.6 Neoplasm of unspecified behavior of brain (principal); G93.6 Cerebral edema; S00.31XA Abrasion of nose, initial encounter; W19.XXXA Unspecified fall, initial encounter; R51 Headache; R11.2 Nausea with vomiting, unspecified; R27.0 Ataxia, unspecified; R53.1 Weakness; I10 Essential (primary) hypertension; H55.00 Unspecified nystagmus
CPT/HCPCS: 99284; 96374; 96375; 36415; 85025; 80048; 70553; A9577; J3490; S0119; J2270; J2405; J1100